=== PATIENT | male | born 2000 | race Caucasian/White ===

== ENCOUNTER 2025-07-30 04:15 | Emergency (ER) | payer OTHER ==
[~2025-07-30] VITALS: Ht 175.3 cm; Wt 85.0 kg
[~2025-07-30 04:15] MED LIST: FLOMAX0.4 MG PO; LITHIUM CARBON450 MG PO; MINIPRESS1 MG PO; NITROFURANTOIN50 MG PO; PROSCAR5 MG PO; PYRIDIUM200 MG PO; VESICARE5 MG PO; VITAMIN D250 MC1 PO
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
[2025-07-30] MEDS ORDERED: ACETAMINOPHEN 500 MG TAB PO ONE (04:30)
[2025-07-30 04:42] LABS: BASOPHILS 0.3 % (0.2-1.2); EOSINOPHILS 2.6 % (0.8-7.0); LYMPHOCYTES 19.1 % (21.8-53.1); MCH 29.6 PG (25.7-32.2); MCHC 33.8 g/dL (32.3-36.5); MCV 87.6 fL (79.0-92.2); MONOCYTES 6.5 % (5.3-12.2); NEUTROPHILS 71.1 % (34.0-67.9); RBC 4.90 M/uL (4.63-6.08)
[2025-07-30 04:53] LABS: INR 1.1 (0.80-1.30); PROTIME 13.8 Sec (11.2-14.2)
[2025-07-30 04:58] LABS: ALCOHOL, MEDICAL <3 ng/dL (<3); ALT (SGPT) 25 U/L (14-59); AST (SGOT) 17 U/L (15-37); GLOMERULAR FILTRATION RATE,EST 125 mL/min (>60); PROTEIN, TOTAL 6.7 g/dL (6.4-8.2); UREA NITROGEN 12 mg/dL (7-18)
[2025-07-30 05:22] LABS: ABO AB; ANTIBODY SCREEN NEGATIVE; RH POSITIVE
[2025-07-30 07:30] VITALS: BP 146/77
--- NOTE | 2025-07-30 07:50 | EKG ---
[facility] [address] [place], [place] [address] Signed Normal sinus rhythm with sinus arrhythmia Normal ECG When compared with ECG of 30-JUL-2025 04:36, (Unconfirmed) No significant change was found Confirmed by Marty Donato DO ([id number]) on 07/30/2025 7:50:13 AM Electronically Signed By: MARTY DONATO DO 07/30/25 0750 PATIENT NAME: LUIS ROSENBERG Electrocardiogram DATE OF : [birth year] PHYSICIAN: MARTY DONATO DO REPORT #: [id number] REPORT IS CONFIDENTIAL AND NOT TO BE RELEASED WITHOUT AUTHORIZATION
--- NOTE | 2025-07-30 07:50 | EKG ---
[facility] [address] [facility] [place], [place] [address] Signed Normal sinus rhythm Normal ECG No previous ECGs available Confirmed by Marty Donato DO ([id number]) on 07/30/2025 7:50:10 AM Electronically Signed By: MARTY DONATO DO 07/30/25 0750 PATIENT NAME: LUIS ROSENBERG Electrocardiogram DATE OF : 00 PHYSICIAN: MARTY DONATO DO REPORT #: [id number] REPORT IS CONFIDENTIAL AND NOT TO BE RELEASED WITHOUT AUTHORIZATION
== END 2025-07-30 07:34 | disposition other institution, planned readmission (95) ==
LOC: ED 04:15
PROVIDERS: Internal Medicine
DX: R55 Syncope and collapse (principal); S02.2XXA Fracture of nasal bones, initial encounter for closed fracture; S01.81XA Laceration without foreign body of other part of head, initial encounter; Z88.8 Allergy status to other drugs, medicaments and biological substances; W18.30XA Fall on same level, unspecified, initial encounter
CPT/HCPCS: 36415; 70450; 70486; 72125; 80053; 80307; 85025; 85610; 85730; 86850; 86900; 86901; 93005; 93010; 99284-25; A9270; G0480

== ENCOUNTER 2025-08-03 19:30 | Emergency (ER) | payer OTHER ==
[~2025-08-03] VITALS: Ht 175.3 cm; Wt 85.0 kg
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
[2025-08-03] MEDS ORDERED: LIDOCAINE 2% VISCOUS 6 ML SYR TOP ONE (20:00)
[2025-08-03 20:12] LABS: BLOOD/HGB, URINE NEGATIVE (Negative); KETONE, URINE NEGATIVE (Negative); LEUK ESTERASE, URINE NEGATIVE (negative); NITRITE, URINE NEGATIVE (negative)
[2025-08-03] MEDS ORDERED: FLOMAX0.4 MG PO (21:14)
[2025-08-03 21:23] VITALS: BP 123/73
== END 2025-08-03 21:23 | disposition home or self-care (01) ==
LOC: ED 19:30
PROVIDERS: Family Medicine
DX: R33.9 Retention of urine, unspecified (principal); Z88.8 Allergy status to other drugs, medicaments and biological substances
CPT/HCPCS: 51702; 51798; 81003; 99283; A4311

== ENCOUNTER 2025-08-07 21:24 | Emergency (ER) | payer OTHER ==
[~2025-08-07] VITALS: Ht 175.3 cm; Wt 86.0 kg
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
[2025-08-07 21:47] LABS: BASOPHILS 0.3 % (0.2-1.2); EOSINOPHILS 2.4 % (0.8-7.0); LYMPHOCYTES 20.0 % (21.8-53.1); MCH 29.4 PG (25.7-32.2); MCHC 34.4 g/dL (32.3-36.5); MCV 85.6 fL (79.0-92.2); MONOCYTES 7.3 % (5.3-12.2); NEUTROPHILS 69.7 % (34.0-67.9); RBC 4.93 M/uL (4.63-6.08)
[2025-08-07 22:10] LABS: ALT (SGPT) 30.0 U/L (14-59); AST (SGOT) 16.0 U/L (15-37); GLOMERULAR FILTRATION RATE,EST 127.0 mL/min (>60); PROTEIN, TOTAL 7.0 g/dL (6.4-8.2); UREA NITROGEN 20.0 mg/dL (7-18)
[2025-08-08 00:23] VITALS: BP 113/73
[2025-08-08] MEDS ORDERED: LITHIUM CARBON600 MG PO (17:20)
[2025-08-08] MEDS ORDERED: KEPPRA500 MG PO (18:55)
== END 2025-08-08 00:25 | disposition home or self-care (01) ==
LOC: ED 21:24
PROVIDERS: Family Medicine
DX: T14.91XA Suicide attempt, initial encounter (principal); R09.01 Asphyxia; F44.5 Conversion disorder with seizures or convulsions; X83.8XXA Intentional self-harm by other specified means, initial encounter; Z79.899 Other long term (current) drug therapy; Z88.5 Allergy status to narcotic agent; Z88.6 Allergy status to analgesic agent; Z88.8 Allergy status to other drugs, medicaments and biological substances
CPT/HCPCS: 36415; 70450; 70496; 70498; 71045; 80053; 85025; 96374; 99285-25; J1953; Q9967

== ENCOUNTER 2025-08-08 17:09 | Emergency (ER) | payer OTHER ==
[~2025-08-08] VITALS: Ht 175.3 cm; Wt 93.7 kg
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
[2025-08-08] MEDS ORDERED: LITHIUM CARBON600 MG PO (17:20)
[2025-08-08 17:27] LABS: BASOPHILS 0.6 % (0.2-1.2); EOSINOPHILS 3.5 % (0.8-7.0); LYMPHOCYTES 20.9 % (21.8-53.1); MCH 29.0 PG (25.7-32.2); MCHC 33.3 g/dL (32.3-36.5); MCV 87.1 fL (79.0-92.2); MONOCYTES 6.5 % (5.3-12.2); NEUTROPHILS 68.1 % (34.0-67.9); RBC 5.18 M/uL (4.63-6.08)
[2025-08-08 17:36] LABS: ALT (SGPT) 30.0 U/L (14-59); AST (SGOT) 11.0 U/L (15-37); GLOMERULAR FILTRATION RATE,EST 125.0 mL/min (>60); PROTEIN, TOTAL 7.1 g/dL (6.4-8.2); UREA NITROGEN 18.0 mg/dL (7-18)
[2025-08-08] MEDS ORDERED: KEPPRA500 MG PO (18:55)
[2025-08-08 19:46] VITALS: BP 113/79
== END 2025-08-08 19:23 | disposition home or self-care (01) ==
LOC: ED 17:09
PROVIDERS: Emergency Medicine
DX: G40.909 Epilepsy, unspecified, not intractable, without status epilepticus (principal); Z88.8 Allergy status to other drugs, medicaments and biological substances
CPT/HCPCS: 36415; 80053; 85025; 96374; 99284; J1953

== ENCOUNTER 2025-08-19 21:36 | Emergency (ER) | payer OTHER ==
[~2025-08-19] VITALS: Ht 175.3 cm; Wt 93.7 kg
[~2025-08-19 21:36] MED LIST changes: +KEPPRA500 MG PO; +LITHIUM CARBON600 MG PO
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
[2025-08-19 23:46] VITALS: BP 138/93
== END 2025-08-19 23:47 | disposition home or self-care (01) ==
LOC: ED 21:36
DX: T14.91XA Suicide attempt, initial encounter (principal); S10.91XA Abrasion of unspecified part of neck, initial encounter; X83.8XXA Intentional self-harm by other specified means, initial encounter; Z79.899 Other long term (current) drug therapy; Z88.5 Allergy status to narcotic agent; Z88.6 Allergy status to analgesic agent; Z88.1 Allergy status to other antibiotic agents
CPT/HCPCS: 70496; 70498; 72125; 99285-25